=== PATIENT | female | born 2005 | race Caucasian/White ===

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

== ENCOUNTER → 2025-01-05 | Outpatient (CLI) | payer OTHER ==
[2025-01-05 15:21] LABS: HEMATOCRIT 39.6 % (36.0-47.0); MEAN CORPUSCULAR HEMOGLOBIN 29.1 pg (27.0-33.0); MEAN CORPUSCULAR HGB CONC 32.8 g/dl (32.0-36.5); MEAN CORPUSCULAR VOLUME 88.6 fl (80.0-96.0); PLATELET COUNT, AUTOMATED 249 10^3/uL (150-450); RED BLOOD COUNT 4.47 10^6/uL (4.00-5.40); WHITE BLOOD COUNT 12.4 10^3/uL (4.0-10.0)
[2025-01-05 15:28] LABS: INR 1.04; PARTIAL THROMBOPLASTIN TIME 28.2 SECONDS (24.8-34.2); PROTHROMBIN TIME 13.9 SECONDS (12.5-14.5)
[2025-01-05 15:50] LABS: PROLACTIN 4.09 NG/ML
[2025-01-05 15:51] LABS: THYROID STIMULATING HORMONE 1.175 uIU/ML (0.48-4.17)
[2025-01-05 15:52] LABS: FREE T4 1.12 NG/DL (0.83-1.43)
== END ==
LOC: M PLALAB 12:42
PROVIDERS: ATTEND Advanced Practice Midwife
DX: N93.9 Abnormal uterine and vaginal bleeding, unspecified (principal)

== ENCOUNTER → 2025-01-27 | Outpatient (REF) | payer OTHER, MEDICAID ==
[2025-01-27 18:57] LABS: BASO % 0.4 % (0.0-1.0); EOS # 0.2 10^3/uL (0.0-0.5); EOS % 2.7 % (0.0-3.0); HEMATOCRIT 41.1 % (36.0-47.0); HEMOGLOBIN 13.1 g/dl (12.0-15.5); LYMPH # 2.8 10^3/uL (1.5-5.0); LYMPH % 39.7 % (24.0-44.0); MEAN CORPUSCULAR HEMOGLOBIN 28.5 pg (27.0-33.0); MEAN CORPUSCULAR HGB CONC 31.9 g/dl (32.0-36.5); MEAN CORPUSCULAR VOLUME 89.3 fl (80.0-96.0); MONO # 0.6 10^3/uL (0.0-0.8); MONO % 8.4 % (2.0-8.0); NEUTROPHILS # 3.5 10^3/uL (1.5-8.5); NEUTROPHILS % 48.5 % (36.0-66.0); PLATELET COUNT, AUTOMATED 273 10^3/uL (150-450); WHITE BLOOD COUNT 7.1 10^3/uL (4.0-10.0)
[2025-01-27 19:05] LABS: ALBUMIN 3.8 G/DL (3.2-5.2); ALKALINE PHOSPHATASE 79 U/L (35-104); ALT/SGPT 18 U/L (7.0-40); AST/SGOT 13 U/L (<34); BILIRUBIN,TOTAL 0.8 MG/DL (0.3-1.2); BLOOD UREA NITROGEN 12 MG/DL (9-23); CALCIUM LEVEL 9.2 MG/DL (8.5-10.1); CARBON DIOXIDE LEVEL 29 MMOL/L (20-31); CHLORIDE LEVEL 105 MMOL/L (98-107); CHOLESTEROL LEVEL 134 MG/DL (<200); CHOLESTEROL RISK RATIO 2.48 (<5); CREATININE FOR GFR 0.65 MG/DL (0.55-1.30); FERRITIN 16.8 NG/ML (7.3-270.7); GLOMERULAR FILTRATION RATE > 90.0 (>60); GLUCOSE, FASTING 82 MG/DL (60-100); IRON (FE) 46 UG/DL (50-170); LDL CHOLESTEROL 69.6 MG/DL (<100); PERCENT SATURATION 13.6 % (13.2-45.0); POTASSIUM SERUM 4.5 MMOL/L (3.5-5.1); SODIUM LEVEL 142 MMOL/L (136-145); TOTAL 25(OH) VITAMIN D 15.6 NG/ML (20.0-100.0); TOTAL IRON BINDING CAPACITY 337 UG/DL (250-425); TOTAL PROTEIN 6.9 G/DL (5.7-8.2); TRIGLYCERIDES LEVEL 52 MG/DL (<150)
[2025-01-27 19:30] LABS: HIV 1&2 SCREEN NEGATIVE (NEGATIVE)
[2025-01-27 19:35] LABS: HEMOGLOBIN A1c 4.6 % (4.0-6.0)
[2025-01-27 19:38] LABS: HEPATITIS C VIRUS ABY INDEX 0.04 INDEX (<0.8)
== END ==
LOC: M LAB REF 17:29
PROVIDERS: ATTEND Physician Assistant
DX: Z11.9 Encounter for screening for infectious and parasitic diseases, unspecified (principal); E66.9 Obesity, unspecified; E55.9 Vitamin D deficiency, unspecified; D64.9 Anemia, unspecified

== ENCOUNTER 2025-03-03 10:41 | Emergency (ER) | payer MEDICAID, OTHER ==
[~2025-03-03] VITALS: Ht 149.9 cm; Wt 59.8 kg
[2025-03-03] MEDS ORDERED: VITA200032 (10:51)
[2025-03-03] MEDS ORDERED: FERR325T19 (10:51)
[2025-03-03] MEDS: ACETAMINOPHEN 325 MG TAB PO ONE (12:35)
[2025-03-03] MEDS: ONDANSETRON 4MG 2ML VIAL IV ONE (12:35)
[2025-03-03 13:07] LABS: BASO % 0.5 % (0.0-1.0); EOS # 0.1 10^3/uL (0.0-0.5); EOS % 0.8 % (0.0-3.0); HEMATOCRIT 39.2 % (36.0-47.0); HEMOGLOBIN 13.1 g/dl (12.0-15.5); LYMPH # 2.3 10^3/uL (1.5-5.0); LYMPH % 29.8 % (24.0-44.0); MEAN CORPUSCULAR HEMOGLOBIN 28.5 pg (27.0-33.0); MEAN CORPUSCULAR HGB CONC 33.4 g/dl (32.0-36.5); MEAN CORPUSCULAR VOLUME 85.4 fl (80.0-96.0); MONO # 0.7 10^3/uL (0.0-0.8); NEUTROPHILS # 4.5 10^3/uL (1.5-8.5); NEUTROPHILS % 59.5 % (36.0-66.0); PLATELET COUNT, AUTOMATED 241 10^3/uL (150-450); RED BLOOD COUNT 4.59 10^6/uL (4.00-5.40); WHITE BLOOD COUNT 7.6 10^3/uL (4.0-10.0)
[2025-03-03 13:16] VITALS: TEMP 98.2
[2025-03-03 13:37] LABS: BLOOD UREA NITROGEN 8 MG/DL (9-23); CARBON DIOXIDE LEVEL 26 MMOL/L (20-31); CHLORIDE LEVEL 106 MMOL/L (98-107); CREATININE FOR GFR 0.55 MG/DL (0.55-1.30); GLOMERULAR FILTRATION RATE > 90.0 (>60); GLUCOSE, FASTING 88 MG/DL (60-100); POTASSIUM SERUM 4.2 MMOL/L (3.5-5.1); SODIUM LEVEL 141 MMOL/L (136-145)
[2025-03-03 13:48] LABS: KETONE, URINE AUTO RFX NEGATIVE (NEGATIVE); NITRITE, URINE AUTO RFX NEGATIVE (NEGATIVE); RBC, URINE AUTO RFX 2 /HPF (0-3); SQUAM EPITHELIAL CELL UR AURFX 24 /HPF (0-6); WBC, URINE AUTO RFX 3 /HPF (0-3)
[2025-03-03 14:03] LABS: HCG, SERUM QUANTITATIVE 51030.8 MIU/ML (<4.2)
[2025-03-03 14:05] LABS: LEUKOCYTE ESTERASE UR AUTO RFX 3+ (NEGATIVE)
[2025-03-03] MEDS ORDERED: DICL10TA PO (14:15)
[2025-03-03] MEDS ORDERED: CEPH500C PO (14:19)
[2025-03-03 14:42] VITALS: BP 114/69; O2SAT 100
[2025-03-03] MEDS ORDERED: UNIS25TA5 PO (17:52)
[2025-03-03] MEDS ORDERED: PYRI25TA2 PO (17:52)
== END 2025-03-03 14:43 | disposition home or self-care (01) ==
LOC: M ED 10:41
DX: R10.2 Pelvic and perineal pain (principal); R82.71 Bacteriuria; Z79.2 Long term (current) use of antibiotics; Z79.899 Other long term (current) drug therapy
CPT/HCPCS: 36415; 80048; 81001; 84702; 85025; 87086; 99284; J2405

== ENCOUNTER → 2025-04-12 | Outpatient (CLI) | payer OTHER ==
[~2025-04-12] MED LIST: CEPH500C PO; DICL10TA PO; FERR325T19; PYRI25TA2 PO; UNIS25TA5 PO; VITA200032
== END ==
LOC: M PLALAB 15:38
PROVIDERS: ATTEND Advanced Practice Midwife
DX: Z34.81 Encounter for supervision of other normal pregnancy, first trimester (principal)

== ENCOUNTER → 2025-05-03 | Outpatient (REF) | payer OTHER, MEDICAID ==
[2025-05-03 18:22] LABS: AMORPHOUS SEDIMENT SMALL (NEGATIVE); APPEARANCE, URINE HAZY (CLEAR); BACTERIA, URINE AUTO 1+ (NEGATIVE); BILIRUBIN, URINE AUTO NEGATIVE (NEGATIVE); BLOOD, URINE BLOOD 3+ (NEGATIVE); GLUCOSE, URINE (UA) AUTO NEGATIVE (NEGATIVE); KETONE, URINE AUTO NEGATIVE (NEGATIVE); LEUKOCYTE ESTERASE, URINE AUTO 1+ (NEGATIVE); MUCUS, URINE SMALL (NEGATIVE); NITRITE, URINE AUTO NEGATIVE (NEGATIVE); PROTEIN, URINE AUTO NEGATIVE (NEGATIVE); RBC, URINE AUTO TNTC /HPF (0-3); SPECIFIC GRAVITY URINE AUTO 1.014 (1.002-1.035); SQUAMOUS EPITHELIAL CELL UR AU 5 /HPF (0-6); UROBILINOGEN, URINE AUTO 0.2 mg/dL (0.0-2.0); WBC, URINE AUTO 6 /HPF (0-3)
[2025-05-03 19:19] LABS: Trichomonas vaginalis (AMP) NOT DETECTED (NEGATIVE)
[2025-05-03 19:43] LABS: GC DNA AMPLIFICATION NEGATIVE (NEGATIVE)
== END ==
LOC: M LAB REF 16:57
PROVIDERS: ATTEND Physician Assistant Medical
DX: N39.0 Urinary tract infection, site not specified (principal); Z20.2 Contact with and (suspected) exposure to infections with a predominantly sexual mode of transmission

== ENCOUNTER → 2025-05-12 | Outpatient (CLI) | payer OTHER ==
[2025-05-12 14:02] LABS: ALT/SGPT 17 U/L (7.0-40); AST/SGOT 19 U/L (<34); CALCIUM LEVEL 8.8 MG/DL (8.5-10.1); CARBON DIOXIDE LEVEL 28 MMOL/L (20-31); CHLORIDE LEVEL 103 MMOL/L (98-107); CREATININE FOR GFR 0.50 MG/DL (0.55-1.30); GLOMERULAR FILTRATION RATE > 90.0 (>60); POTASSIUM SERUM 3.8 MMOL/L (3.5-5.1); SODIUM LEVEL 142 MMOL/L (136-145)
[2025-05-12 14:03] LABS: PLATELET COUNT, AUTOMATED 253 10^3/uL (150-450)
[2025-05-12 14:16] LABS: TOTAL PROTEIN,RANDOM URINE 14.2 MG/DL (0.0-14.0)
== END ==
LOC: M PLALAB 10:46
PROVIDERS: ATTEND Obstetrics & Gynecology
DX: O16.2 Unspecified maternal hypertension, second trimester (principal)

== ENCOUNTER 2025-05-17 13:58 | Emergency (ER) | payer OTHER ==
[~2025-05-17] VITALS: Ht 149.9 cm; Wt 62.1 kg
[2025-05-17 14:01] VITALS: TEMP 97.2
[2025-05-17 14:50] LABS: BASO # 0.0 10^3/uL (0.0-0.2); BASO % 0.3 % (0.0-1.0); EOS # 0.1 10^3/uL (0.0-0.5); EOS % 1.0 % (0.0-3.0); LYMPH # 2.0 10^3/uL (1.5-5.0); LYMPH % 20.3 % (24.0-44.0); MONO # 0.5 10^3/uL (0.0-0.8); MONO % 5.2 % (2.0-8.0); NEUTROPHILS # 7.2 10^3/uL (1.5-8.5); NEUTROPHILS % 72.7 % (36.0-66.0); PLATELET COUNT, AUTOMATED 254 10^3/uL (150-450)
[2025-05-17 14:51] LABS: KETONE, URINE AUTO RFX NEGATIVE (NEGATIVE); LEUKOCYTE ESTERASE UR AUTO RFX 2+ (NEGATIVE); NITRITE, URINE AUTO RFX NEGATIVE (NEGATIVE); RBC, URINE AUTO RFX 7 /HPF (0-3); SQUAM EPITHELIAL CELL UR AURFX 5 /HPF (0-6); WBC, URINE AUTO RFX 1 /HPF (0-3)
[2025-05-17 15:12] LABS: CALCIUM LEVEL 9.2 MG/DL (8.5-10.1); CARBON DIOXIDE LEVEL 25 MMOL/L (20-31); CHLORIDE LEVEL 103 MMOL/L (98-107); CREATININE FOR GFR 0.54 MG/DL (0.55-1.30); GLOMERULAR FILTRATION RATE > 90.0 (>60); POTASSIUM SERUM 3.8 MMOL/L (3.5-5.1); SODIUM LEVEL 142 MMOL/L (136-145)
[2025-05-17 15:41] LABS: HCG, SERUM QUANTITATIVE 17542.0 MIU/ML (<4.2)
[2025-05-17 16:00] VITALS: BP 105/53; O2SAT 100
== END 2025-05-17 16:12 | disposition home or self-care (01) ==
LOC: M ED 13:58
DX: O20.8 Other hemorrhage in early pregnancy (principal); Z3A.18 18 weeks gestation of pregnancy; Z79.2 Long term (current) use of antibiotics; Z79.899 Other long term (current) drug therapy

== ENCOUNTER → 2025-06-09 | Outpatient (CLI) | payer OTHER ==
[~2025-06-09] MED LIST changes: +ACET-907 PO; +ECOT81TA5 PO; +MACR100C43 PO; +PRENTAB9 PO; +TUMS500C PO
== END ==
LOC: M WHC 11:39
PROVIDERS: ATTEND Obstetrics & Gynecology
DX: Z36.89 Encounter for other specified antenatal screening (principal); Z3A.21 21 weeks gestation of pregnancy

== ENCOUNTER 2025-06-11 00:53 | Emergency (ER) | payer OTHER ==
[~2025-06-11 00:53] MED LIST changes: -ACET-907 PO; -ECOT81TA5 PO; -MACR100C43 PO; -PRENTAB9 PO; -TUMS500C PO
[2025-06-11] MEDS ORDERED: ACET-907 PO (01:13)
[2025-06-11] MEDS ORDERED: TUMS500C PO (01:13)
[2025-06-11] MEDS ORDERED: PRENTAB9 PO (01:13)
[2025-06-11] MEDS ORDERED: ECOT81TA5 PO (01:23)
[2025-06-11] MEDS ORDERED: MACR100C43 PO (03:03)
== END 2025-06-11 02:22 | disposition admitted as inpatient to this hospital (09) ==
LOC: M ED 00:53
DX: Z53.21 Procedure and treatment not carried out due to patient leaving prior to being seen by health care provider (principal)

== ENCOUNTER 2025-06-11 01:05 | Outpatient (CLI) | payer OTHER ==
[~2025-06-11] VITALS: Ht 149.9 cm; Wt 64.5 kg
[2025-06-11] MEDS ORDERED: TUMS500C PO (01:13)
[2025-06-11] MEDS ORDERED: PRENTAB9 PO (01:13)
[2025-06-11] MEDS ORDERED: ACET-907 PO (01:13)
[2025-06-11] MEDS ORDERED: ECOT81TA5 PO (01:23)
[2025-06-11 01:25] VITALS: BP 108/58
[2025-06-11] MEDS ORDERED: HOME MED LIST COMPLETE! XX SCH (01:25)
[2025-06-11 01:59] LABS: PLATELET COUNT, AUTOMATED 268 10^3/uL (150-450)
[2025-06-11 02:17] LABS: KETONE, URINE AUTO RFX TRACE mg/dL (NEGATIVE); LEUKOCYTE ESTERASE UR AUTO RFX 2+ (NEGATIVE); MUCUS, URINE RFX SMALL (NEGATIVE); NITRITE, URINE AUTO RFX NEGATIVE (NEGATIVE); RBC, URINE AUTO RFX 6 /HPF (0-3); SQUAM EPITHELIAL CELL UR AURFX 8 /HPF (0-6); WBC, URINE AUTO RFX 4 /HPF (0-3)
[2025-06-11 02:21] LABS: ALT/SGPT 19 U/L (7.0-40); AST/SGOT 17 U/L (<34); CALCIUM LEVEL 8.9 MG/DL (8.5-10.1); CARBON DIOXIDE LEVEL 26 MMOL/L (20-31); CHLORIDE LEVEL 103 MMOL/L (98-107); CREATININE FOR GFR 0.51 MG/DL (0.55-1.30); GLOMERULAR FILTRATION RATE > 90.0 (>60); POTASSIUM SERUM 3.5 MMOL/L (3.5-5.1); SODIUM LEVEL 140 MMOL/L (136-145)
[2025-06-11] MEDS ORDERED: MACR100C43 PO (03:03)
[2025-06-11] MEDS: NITROFURANTOIN 100 MG CAP PO ONE (03:19)
== END 2025-06-11 03:20 | disposition home or self-care (01) ==
LOC: M LDO 01:05
PROVIDERS: ATTEND Advanced Practice Midwife
DX: O26.892 Other specified pregnancy related conditions, second trimester (principal); R10.2 Pelvic and perineal pain; Z3A.21 21 weeks gestation of pregnancy
CPT/HCPCS: 59025; 80053; 81001; 85027; 87086; G0463

== ENCOUNTER → 2025-06-24 | Outpatient (REF) | payer OTHER, MEDICAID ==
[~2025-06-24] MED LIST changes: +ACET-907 PO; +ECOT81TA5 PO; +MACR100C43 PO; +PRENTAB9 PO; +TUMS500C PO
[2025-06-24 18:36] LABS: AMORPHOUS SEDIMENT SMALL (NEGATIVE); APPEARANCE, URINE CLOUDY (CLEAR); BACTERIA, URINE AUTO 3+ (NEGATIVE); BILIRUBIN, URINE AUTO NEGATIVE (NEGATIVE); BLOOD, URINE BLOOD NEGATIVE (NEGATIVE); GLUCOSE, URINE (UA) AUTO NEGATIVE (NEGATIVE); KETONE, URINE AUTO NEGATIVE (NEGATIVE); LEUKOCYTE ESTERASE, URINE AUTO 3+ (NEGATIVE); MUCUS, URINE SMALL (NEGATIVE); NITRITE, URINE AUTO NEGATIVE (NEGATIVE); PROTEIN, URINE AUTO NEGATIVE (NEGATIVE); RBC, URINE AUTO 1 /HPF (0-3); SPECIFIC GRAVITY URINE AUTO 1.011 (1.002-1.035); SQUAMOUS EPITHELIAL CELL UR AU 24 /HPF (0-6); UROBILINOGEN, URINE AUTO 0.2 mg/dL (0.0-2.0); WBC, URINE AUTO 4 /HPF (0-3)
== END ==
LOC: M LAB REF 17:05
PROVIDERS: ATTEND Physician Assistant
DX: N39.0 Urinary tract infection, site not specified (principal)

== ENCOUNTER → 2025-07-11 | Outpatient (CLI) | payer OTHER ==
[2025-07-11 17:34] LABS: PLATELET COUNT, AUTOMATED 272 10^3/uL (150-450)
[2025-07-11 18:00] LABS: GLUCOSE CHALLENGE TEST 1 HOUR 69 MG/DL (LESS THAN 140)
[2025-07-11 18:30] LABS: HIV 1&2 SCREEN NEGATIVE (NEGATIVE)
[2025-07-11 18:38] LABS: HEPATITIS C VIRUS ABY INDEX 0.08 INDEX (<0.8)
[2025-07-11 19:18] LABS: Trichomonas vaginalis (AMP) NOT DETECTED (NEGATIVE)
[2025-07-11 19:42] LABS: GC DNA AMPLIFICATION NEGATIVE (NEGATIVE)
== END ==
LOC: M PLALAB 14:02
PROVIDERS: ATTEND Obstetrics & Gynecology
DX: Z34.02 Encounter for supervision of normal first pregnancy, second trimester (principal)

== ENCOUNTER → 2025-07-14 | Outpatient (CLI) | payer OTHER | LOC: M WHC 11:55 | PROVIDERS: ATTEND Obstetrics & Gynecology | DX: Z34.82 Encounter for supervision of other normal pregnancy, second trimester (principal); Z3A.25 25 weeks gestation of pregnancy ==

== ENCOUNTER → 2025-08-10 | Outpatient (CLI) | payer OTHER | LOC: M WHC 15:09 | PROVIDERS: ATTEND Obstetrics & Gynecology | DX: Z34.80 Encounter for supervision of other normal pregnancy, unspecified trimester (principal); Z53.9 Procedure and treatment not carried out, unspecified reason ==

== ENCOUNTER → 2025-08-11 | Outpatient (CLI) | payer OTHER | LOC: M WHC 16:06 | PROVIDERS: ATTEND Obstetrics & Gynecology | DX: Z34.80 Encounter for supervision of other normal pregnancy, unspecified trimester (principal) ==

== ENCOUNTER → 2025-08-15 | Outpatient (CLI) | payer OTHER ==
[2025-08-15 17:48] LABS: PLATELET COUNT, AUTOMATED 373 10^3/uL (150-450)
[2025-08-15 17:59] LABS: TOTAL PROTEIN,RANDOM URINE 39.9 MG/DL (0.0-14.0)
[2025-08-15 18:05] LABS: ALT/SGPT 44 U/L (7.0-40); AST/SGOT 25 U/L (<34); CALCIUM LEVEL 8.6 MG/DL (8.5-10.1); CARBON DIOXIDE LEVEL 25 MMOL/L (20-31); CHLORIDE LEVEL 103 MMOL/L (98-107); CREATININE FOR GFR 0.42 MG/DL (0.55-1.30); GLOMERULAR FILTRATION RATE > 90.0 (>60); PHOSPHORUS LEVEL 3.4 MG/DL (2.5-4.9); POTASSIUM SERUM 4.0 MMOL/L (3.5-5.1); SODIUM LEVEL 138 MMOL/L (136-145)
[2025-08-15 18:07] LABS: TOTAL 25(OH) VITAMIN D 22.9 NG/ML (20.0-100.0)
== END ==
LOC: M PLALAB 16:26
PROVIDERS: ATTEND Obstetrics & Gynecology
DX: Z34.83 Encounter for supervision of other normal pregnancy, third trimester (principal)

== ENCOUNTER → 2025-08-17 | Outpatient (REF) | payer MEDICAID, OTHER ==
[2025-08-17 12:20] LABS: URINE TOTAL PROTEIN 21.5 MG/DL (0-14)
[2025-08-17 12:25] LABS: CREATININE, URINE 59.9 MG/DL
[2025-08-17 12:27] LABS: TOTAL PROTEIN 24 HOUR URINE 322.5 MG/24HR (50-80)
== END ==
LOC: M LAB REF 11:18
PROVIDERS: ATTEND Obstetrics & Gynecology
DX: Z34.83 Encounter for supervision of other normal pregnancy, third trimester (principal)

== ENCOUNTER → 2025-08-29 | Outpatient (CLI) | payer OTHER ==
[2025-08-29 15:42] LABS: PLATELET COUNT, AUTOMATED 322 10^3/uL (150-450)
[2025-08-29 16:12] LABS: ALT/SGPT 25 U/L (7.0-40); AST/SGOT 20 U/L (<34); CALCIUM LEVEL 9.0 MG/DL (8.5-10.1); CARBON DIOXIDE LEVEL 26 MMOL/L (20-31); CHLORIDE LEVEL 101 MMOL/L (98-107); CREATININE FOR GFR 0.43 MG/DL (0.55-1.30); GLOMERULAR FILTRATION RATE > 90.0 (>60); POTASSIUM SERUM 4.0 MMOL/L (3.5-5.1); SODIUM LEVEL 137 MMOL/L (136-145)
[2025-08-29 16:13] LABS: TOTAL PROTEIN,RANDOM URINE < 6.0 MG/DL (0.0-14.0)
== END ==
LOC: M PLALAB 14:07
PROVIDERS: ATTEND Obstetrics & Gynecology
DX: Z34.03 Encounter for supervision of normal first pregnancy, third trimester (principal)

== ENCOUNTER → 2025-09-05 | Outpatient (REF) | payer MEDICAID, OTHER ==
[2025-09-05 13:06] LABS: TOTAL PROTEIN 24 HOUR URINE 236.5 MG/24HR (50-80); URINE TOTAL PROTEIN 11.0 MG/DL (0-14)
[2025-09-05 13:10] LABS: CREATININE, URINE 39.9 MG/DL
== END ==
LOC: M LAB REF 10:08
PROVIDERS: ATTEND Obstetrics & Gynecology
DX: Z34.03 Encounter for supervision of normal first pregnancy, third trimester (principal)

== ENCOUNTER → 2025-09-19 | Outpatient (CLI) | payer OTHER | LOC: M PLALAB 10:20 | PROVIDERS: ATTEND Obstetrics & Gynecology Obstetrics | DX: O26.86 Pruritic urticarial papules and plaques of pregnancy (PUPPP) (principal); Z3A.00 Weeks of gestation of pregnancy not specified ==

== ENCOUNTER → 2025-09-26 | Outpatient (CLI) | payer OTHER | LOC: M PLALAB 12:17 | PROVIDERS: ATTEND Obstetrics & Gynecology Obstetrics | DX: Z34.03 Encounter for supervision of normal first pregnancy, third trimester (principal) ==

== ENCOUNTER 2025-10-08 20:56 | Inpatient (IN) | payer MEDICAID, OTHER ==
[~2025-10-08] VITALS: Ht 149.9 cm; Wt 73.8 kg
[2025-10-08] MEDS ORDERED: FIOR1CAP PO (21:09)
[2025-10-08 21:11] VITALS: BP 114/68
[2025-10-08] MEDS: LR 1,000 ML IV SCH (22:54)
[2025-10-08 23:00] LABS: BASO # 0.0 10^3/uL (0.0-0.2); BASO % 0.3 % (0.0-1.0); EOS # 0.1 10^3/uL (0.0-0.5); EOS % 0.9 % (0.0-3.0); LYMPH # 2.9 10^3/uL (1.5-5.0); LYMPH % 21.3 % (24.0-44.0); MONO # 1.0 10^3/uL (0.0-0.8); MONO % 7.1 % (2.0-8.0); NEUTROPHILS # 9.6 10^3/uL (1.5-8.5); NEUTROPHILS % 69.6 % (36.0-66.0); PLATELET COUNT, AUTOMATED 367 10^3/uL (150-450)
[2025-10-08] MEDS: CALCIUM CARBONATE 500 MG CHEW U/D PO ONE (23:17)
[2025-10-08] MEDS: BUTORPHANOL 2 MG/ML 1 ML VIAL IV ONE (23:18)
[2025-10-08 23:21] VITALS: BP 115/63
[2025-10-09] VITALS (9 sets, daily range): BP systolic 98–119; BP diastolic 56–73; O2SAT 78–100
[2025-10-09 01:12] LABS: ALT/SGPT 12 U/L (7.0-40); AST/SGOT 19 U/L (<34); CALCIUM LEVEL 9.2 MG/DL (8.5-10.1); CARBON DIOXIDE LEVEL 21 MMOL/L (20-31); CHLORIDE LEVEL 106 MMOL/L (98-107); CREATININE FOR GFR 0.43 MG/DL (0.55-1.30); GLOMERULAR FILTRATION RATE > 90.0 (>60); POTASSIUM SERUM 3.6 MMOL/L (3.5-5.1); SODIUM LEVEL 141 MMOL/L (136-145)
[2025-10-09] MEDS ORDERED: HOME MED LIST COMPLETE! XX SCH (01:25)
[2025-10-09 01:53] LABS: HIV 1&2 SCREEN NEGATIVE (NEGATIVE)
[2025-10-09 02:01] LABS: HEPATITIS C VIRUS ABY INDEX 0.07 INDEX (<0.8)
[2025-10-09] MEDS: BUTORPHANOL 2 MG/ML 1 ML VIAL IV ONE (06:45)
[2025-10-09] MEDS: CALCIUM CARBONATE 500 MG CHEW U/D PO ONE (07:02)
[2025-10-09] MEDS ORDERED: LR 1,000 ML IV SCH (07:40)
[2025-10-09] MEDS: FIORICET TAB PO ONE (07:42)
[2025-10-09] MEDS: BICITRA 30 ML SOLN UDC PO ONE (08:09)
[2025-10-09] MEDS: ceFAZolin SODIUM 2 GM in DEXTROSE 5% (D5W) ADV/MINI-BAG 50 ML IV ONE (08:09)
[2025-10-09] MEDS ORDERED: ONDANSETRON 4MG/2ML VIAL As Ordered ONE (08:19)
[2025-10-09] MEDS ORDERED: OXYTOCIN INJ 10UNITS/ML 1ML VIAL As Ordered ONE (08:19)
[2025-10-09] MEDS ORDERED: KETOROLAC 30 MG/ML 1 ML VIAL As Ordered ONE (08:19)
[2025-10-09] MEDS ORDERED: MORPHINE PRES-FREE INJ 10 MG/10 ML VIAL As Ordered ONE (08:20)
[2025-10-09] MEDS ORDERED: dexAMETHasone 4 MG/ML 1 ML VIAL As Ordered ONE (08:29)
[2025-10-09 09:33] LABS: CORD GAS ABE A -4.3; CORD GAS ABE V -2.2; CORD GAS HCO3 A 21.7 MMOL/L; CORD GAS HCO3 V 22.5 MMOL/L; CORD GAS O2 SAT A 77.1 %; CORD GAS O2 SAT V 84.1 %; CORD GAS PCO2 A 43.3 mmHg; CORD GAS PCO2 V 38.7 mmHg; CORD GAS PH A 7.318 UNITS; CORD GAS PH V 7.383 UNITS; CORD GAS PO2 A 34.5 mmHg; CORD GAS PO2 V 37.9 mmHg; CORD GAS SBC A 20.5 MMOL/L; CORD GAS SBC V 22.3 MMOL/L; CORD GAS TCO2 A 23.0 MMOL/L; CORD GAS TCO2 V 23.7 MMOL/L
[2025-10-09] MEDS ORDERED: RHOGAM 300MCG (1500IU) INJ IM SCH (09:45)
[2025-10-09] MEDS ORDERED: PERCOCET 5MG/325MG TAB PO PRN (09:45)
[2025-10-09] MEDS: LR 1,000 ML IV SCH (09:45)
[2025-10-09] MEDS ORDERED: SIMETHICONE 80MG CHEW TAB PO PRN (09:45)
[2025-10-09] MEDS ORDERED: ONDANSETRON 4MG/2ML VIAL IV PRN (09:45)
[2025-10-09] MEDS ORDERED: **NOTE PATIENT COMMENT** MISC XX SCH (10:15)
[2025-10-09] MEDS ORDERED: HYDROMORPHONE HCL 0.5 MG/0.5 ML SYRINGE IV PRN (10:15)
[2025-10-09] MEDS ORDERED: NALOXONE INJ 0.4 MG/1 ML VIAL IV PRN ×2 (10:15)
[2025-10-09] MEDS: SLF 3 ML SYR IV SCH (10:15)
[2025-10-09] MEDS: MORPHINE 10 MG/ML 1 ML VIAL IV PRN (10:28)
[2025-10-09] MEDS ORDERED: SUCCINYLCHOLINE 100MG/5ML SYRINGE As Ordered ONE (10:39)
[2025-10-09] MEDS ORDERED: ROCURONIUM BROMIDE 50MG/5ML VIAL As Ordered ONE (10:39)
[2025-10-09] MEDS: PERCOCET 5MG/325MG TAB PO PRN (10:43)
[2025-10-09] MEDS ORDERED: MEPERIDINE 25 MG/ML 1 ML VIAL As Ordered ONE (11:07)
[2025-10-09] MEDS: MEPERIDINE 25 MG/ML 1 ML VIAL IV ONE (11:08)
[2025-10-09] MEDS: diphenhydrAMINE 50 MG/ML VIAL IV PRN (13:44)
[2025-10-09] MEDS: KETOROLAC 30 MG/ML 1 ML VIAL IV SCH (17:16)
[2025-10-09] MEDS ORDERED: IBUP80TA PO (19:55)
[2025-10-09] MEDS ORDERED: OXYC1TAB23 PO (19:55)
[2025-10-10] VITALS (7 sets, daily range): BP systolic 99–123; BP diastolic 56–73; TEMP 97.7; O2SAT 97–98
[2025-10-10] MEDS: DOCUSATE SODIUM 100 MG CAPSULE PO PRN (04:46)
[2025-10-10 06:56] LABS: PLATELET COUNT, AUTOMATED 326 10^3/uL (150-450)
[2025-10-10] MEDS: PRENATAL VITAMINS CHEWABLE TABLET PO SCH (07:26)
[2025-10-10] MEDS: IBUPROFEN 800 MG TAB PO SCH (12:00)
[2025-10-11 02:00] VITALS: BP 98/60; O2SAT 97
[2025-10-11 06:00] VITALS: BP 98/60; O2SAT 99
[2025-10-11] MEDS: MEASLES,MUMPS,RUBELLA VACCINE INJ (MMR-II) SC.IMMUN ONE (09:00)
== END 2025-10-11 15:30 | disposition home or self-care (01) | DRG 540 ==
LOC: M LDO 20:56 → M LDI 10-09 05:57 → M OBS 10-09 11:40
PROVIDERS: ADMIT Specialist; ATTEND Specialist
PROC: 10D00Z1 Extraction of Products of Conception, Low, Open Approach (ICD-10-PCS; principal; 2025-10-09 08:46)
DX: O32.1XX0 Maternal care for breech presentation, not applicable or unspecified (principal); O29.43 Spinal and epidural anesthesia induced headache during pregnancy, third trimester; Z3A.38 38 weeks gestation of pregnancy; Z79.82 Long term (current) use of aspirin; Z79.899 Other long term (current) drug therapy; Z37.0 Single live birth